=== PATIENT | male | born 1995 | race Caucasian/White ===

== ENCOUNTER 2017-01-26 11:50 | Emergency (ER) | payer OTHER ==
[~2017-01-26] VITALS: Ht 182.9 cm; Wt 75.5 kg
[~2017-01-26 11:50] MED LIST: AUGMENTIN875 MG PO; MIRALAX17 GM PO; MOBIC7.5 MG PO
[2017-01-26 12:16] LABS: HEMATOCRIT 43.6 % (38.0-50.0); MCH 28.6 PG (29.0-34.0); MCV 86.7 FL (86-99); MEAN PLAT.VOLUME 10.9 uM^3 (9.0-12.4); PLATELET COUNT 274 K/uL (156-360); RBC DIS.WIDTH-CV 13.3 % (11.8-14.6); RBC DIS.WIDTH-SD 41.8 % (39-53); RED BLOOD COUNT 5.03 M/uL (4.00-5.50); WHITE BLOOD COUNT 7.8 K/uL (4.1-10.2)
[2017-01-26 12:28] LABS: CHLORIDE 103 mEq/L (99-109); POTASSIUM 4.4 mEq/L (3.7-5.4); SODIUM 138 mEq/L (136-147)
[2017-01-26 12:30] LABS: GLUCOSE 100 mg/dL (70-99)
[2017-01-26 12:32] LABS: ANION GAP 7 MEQ/L (2-14)
[2017-01-26 12:34] LABS: GFR ESTIMATE (CALCULATED) > 59 mL/min/
[2017-01-26 12:35] LABS: UREA NITROGEN (BUN) 20 mg/dL (9-23)
[2017-01-26 12:37] LABS: TROP-I INTERPRETATION NEGATIVE; TROPONIN-I 0.01 ng/mL (0.0-0.30)
[2017-01-26 14:13] LABS: ADD MIUA? YES; BILIRUBIN NEGATIVE; BLOOD NEGATIVE; COLOR YELLOW ((YELLOW)); GLUCOSE (STRIP) NEGATIVE; KETONES NEGATIVE; LEUKOCYTES NEGATIVE; NITRITE NEGATIVE; PROTEIN (STRIP) 30; UROBILINOGEN 0.2 MG/DL (0.2-1.0)
[2017-01-26 14:20] LABS: THC CANNABINOIDS NEGATIVE (50 ng/mL)
[2017-01-26 14:21] LABS: AMPHETAMINE NEGATIVE (500 ng/mL); BARBITURATES NEGATIVE (200 ng/mL); BENZODIAZEPINES NEGATIVE (150 ng/mL); COCAINE NEGATIVE (150 ng/mL); INTERNAL CONTROLS VALID? YES; METHADONE NEGATIVE (200 ng/mL); METHAMPHETAMINE NEGATIVE (500 ng/mL); OPIATES (MORPHINE) NEGATIVE (100 ng/mL); OXYCODONE NEGATIVE (100 ng/mL); PHENCYCLIDINE NEGATIVE (25 ng/mL); PROPOXYPHENE NEGATIVE (300 ng/mL); TRICYCLIC ANTIDEPRESSANTS NEGATIVE (300 ng/mL)
[2017-01-26 14:29] LABS: AMORPHOUS URATES CRYSTALS 2+; BACTERIA NONE SEEN /HPF; CRYSTALS PRESENT; EPITHELIAL CELLS RARE /HPF; MUCUS NONE SEEN /LPF; RED BLOOD CELLS 0-5 /HPF (0-5); WHITE BLOOD CELLS 0-5 /HPF (0-5)
[2017-01-26 14:37] LABS: TROP-I INTERPRETATION NEGATIVE; TROPONIN-I 0.01 ng/mL (0.0-0.30)
[2017-01-26 15:32] VITALS: BP 128/79
== END 2017-01-26 15:33 | disposition home or self-care (01) ==
LOC: EME 11:50
PROVIDERS: Nurse Practitioner Family
DX: T48.4X1A Poisoning by expectorants, accidental (unintentional), initial encounter (principal); R00.2 Palpitations; F19.10 Other psychoactive substance abuse, uncomplicated; I48.91 Unspecified atrial fibrillation; F17.200 Nicotine dependence, unspecified, uncomplicated
CPT/HCPCS: 71020; 80048; 81003; 84484; 85027; 93005; 99281; 99284; J7030

== ENCOUNTER 2017-02-05 22:31 | Emergency (ER) | payer OTHER ==
[~2017-02-05] VITALS: Ht 180.3 cm; Wt 75.8 kg
[2017-02-05 23:25] LABS: BASOPHIL COUNT 0.1 K/uL (0-0.1); EOSINOPHIL (%) 1.2 % (0-5); EOSINOPHIL COUNT 0.1 K/uL (0-0.3); HEMATOCRIT 42.9 % (38.0-50.0); IMMATURE GRANULOCYTE (%) 0.4 % (0.0-0.7); INSTRUMENT ABS NEUTROPHIL CT 4.5 K/uL; LYMPHOCYTE COUNT 2.8 K/uL (1.0-2.8); MCH 28.7 PG (29.0-34.0); MCHC 33.6 G/DL (30.0-36.0); MCV 85.6 FL (86-99); MEAN PLAT.VOLUME 10.9 uM^3 (9.0-12.4); MONOCYTE (%) 8.3 % (3-12); MONOCYTE COUNT 0.7 K/uL (0-0.8); NEUTROPHIL (%) 54.8 % (45-76); NEUTROPHIL COUNT 4.5 K/uL (1.8-6.4); PLATELET COUNT 245 K/uL (156-360); RBC DIS.WIDTH-CV 13.2 % (11.8-14.6); RBC DIS.WIDTH-SD 41.1 % (39-53); RED BLOOD COUNT 5.01 M/uL (4.00-5.50); WHITE BLOOD COUNT 8.2 K/uL (4.1-10.2)
[2017-02-05 23:36] LABS: CHLORIDE 101 mEq/L (99-109); POTASSIUM 4.4 mEq/L (3.7-5.4); SODIUM 137 mEq/L (136-147)
[2017-02-05 23:39] LABS: GLUCOSE 95 mg/dL (70-99)
[2017-02-05 23:40] LABS: ANION GAP 12 MEQ/L (2-14)
[2017-02-05 23:41] LABS: TOTAL BILIRUBIN 0.6 mg/dL (0.0-1.0)
[2017-02-05 23:42] LABS: SERUM ETHYL ALCOHOL < 10 mg/dL
[2017-02-05 23:43] LABS: ALKALINE PHOSPHATASE 71 IU/L (3-129); GFR ESTIMATE (CALCULATED) > 59 mL/min/
[2017-02-05 23:44] LABS: UREA NITROGEN (BUN) 23 mg/dL (9-23)
[2017-02-05 23:46] LABS: SALICYLATE < 5.0 MG/DL (15-30)
[2017-02-06 00:59] LABS: AMPHETAMINE NEGATIVE (500 ng/mL); BARBITURATES NEGATIVE (200 ng/mL); BENZODIAZEPINES NEGATIVE (150 ng/mL); COCAINE NEGATIVE (150 ng/mL); INTERNAL CONTROLS VALID? YES; METHADONE NEGATIVE (200 ng/mL); METHAMPHETAMINE NEGATIVE (500 ng/mL); OPIATES (MORPHINE) NEGATIVE (100 ng/mL); OXYCODONE NEGATIVE (100 ng/mL); PHENCYCLIDINE NEGATIVE (25 ng/mL); PROPOXYPHENE NEGATIVE (300 ng/mL); THC CANNABINOIDS NEGATIVE (50 ng/mL); TRICYCLIC ANTIDEPRESSANTS NEGATIVE (300 ng/mL)
[2017-02-06 02:35] VITALS: BP 122/92
== END 2017-02-06 02:10 | disposition home or self-care (01) ==
LOC: EME 22:31
PROVIDERS: Emergency Medicine
DX: F19.10 Other psychoactive substance abuse, uncomplicated (principal); R44.0 Auditory hallucinations; Z87.891 Personal history of nicotine dependence
CPT/HCPCS: 80053; 85025; 90839; 93005; 99281; 99285; G0480; J7030